=== PATIENT | female | born 1975 | race Native Hawaiian/Other Pacific Islander ===

== ENCOUNTER 2019-05-19 08:49 | Emergency (ER) | payer OTHER ==
[2019-05-19 09:05] VITALS: BP 124/79
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
== END 2019-05-19 12:16 | disposition home or self-care (01) ==
LOC: ED 08:49
DX: M54.9 Dorsalgia, unspecified (principal); R07.89 Other chest pain; E11.9 Type 2 diabetes mellitus without complications; Z79.899 Other long term (current) drug therapy; V49.49XA Driver injured in collision with other motor vehicles in traffic accident, initial encounter; Y93.89 Activity, other specified; Y92.488 Other paved roadways as the place of occurrence of the external cause; Y99.8 Other external cause status
CPT/HCPCS: 71046; 72072